=== PATIENT | male | born 1940 | race African-American/Black ===

== ENCOUNTER 2017-08-25 17:26 | Emergency (ER) | payer BC, OTHER ==
[~2017-08-25] VITALS: Ht 188 cm; Wt 112.0 kg
[~2017-08-25 17:26] MED LIST: WARF5TAB73 PO
[2017-08-25] MEDS ORDERED: ACETAMINOPHEN 500MG TABLET PO ONE (22:00)
[2017-08-26 00:45] VITALS: BP 141/86
== END 2017-08-26 02:23 | disposition home or self-care (01) ==
LOC: ER 17:26
DX: R60.0 Localized edema (principal); M71.22 Synovial cyst of popliteal space [Baker], left knee; I10 Essential (primary) hypertension; E11.9 Type 2 diabetes mellitus without complications; Z86.718 Personal history of other venous thrombosis and embolism; Z79.01 Long term (current) use of anticoagulants
CPT/HCPCS: 93970; 99284

== ENCOUNTER 2017-11-28 21:49 | Emergency (ER) | payer BC ==
[~2017-11-28] VITALS: Ht 188 cm; Wt 112.0 kg
[2017-11-28 22:20] VITALS: BP 181/88
== END 2017-11-29 | disposition left against medical advice (07) ==
LOC: ER 23:22
DX: J02.9 Acute pharyngitis, unspecified (principal); R05 Cough; R09.81 Nasal congestion; Z53.21 Procedure and treatment not carried out due to patient leaving prior to being seen by health care provider
CPT/HCPCS: Z7610 ×3